=== PATIENT | female | born 1970 | race Caucasian/White ===

== ENCOUNTER 2018-08-17 09:36 | Day surgery (SDC) | payer OTHER ==
[~2018-08-17 09:36] MED LIST: BUPIVACAINE 0.5% 30 ML SDV ONE; HEPARIN 1000 UNIT/1 ML MDV ONE; ceFAZolin 1 GM/5 ML SYR ONE; cefOXitin SODIUM 2 GM in NS 100 ML IV ONE
[2018-08-17] MEDS ORDERED: LR 1,000 ML IV ONE (09:51)
[2018-08-17] MEDS ORDERED: MIDAZOLAM 2 MG/2 ML VIAL IVP ONE (10:26)
--- NOTE | 2018-08-17 10:26 | PDANEPAE ---
ANE History of Present Illness cholelithiasis ANE Past Medical History - Cardiovascular History Hx Hypertension: No Hx Arrhythmias: No Hx Chest Pain: No Hx Coronary Artery / Peripheral Vascular Disease: No Hx CHF / Valvular Disease: No Hx Palpitations: No - Pulmonary History Hx COPD: No Hx Asthma/Reactive Airway Disease: Yes Hx Recent Upper Respiratory Infection: No Hx Oxygen in Use at Home: No Hx Sleep Apnea: No Sleep Apnea Screening Result - Last Documented: Negative Pulmonary History Comment: uses symbicort - Neurologic History Hx Cerebrovascular Accident: No Hx Seizures: No Hx Dementia: No - Endocrine History Hx Diabetes: No Hypothyroid: Yes Obesity: moderate Endocrine History Comment: hypothyroidism - Renal History Hx Renal Disorders: No - Liver History Hx Hepatic Disorders: No - Neurological & Psychiatric Hx Hx Neurological and Psychiatric Disorders: Yes Neurological / Psychiatric History Comment: anxiety - Cancer History Hx Cancer: No - Congenital Disorder History Hx Congenital Disorders: No - GI History GERD: moderate Hx Gastrointestinal Disorders: Yes Gastrointestinal History Comment: constipation. reflux - Other Health History Other Health History: wears glasses/ contacts - Chronic Pain History Chronic Pain: No - Surgical History Prior Surgeries: EGD ANE Review of Systems Review of systems is: negative Review of Systems: - Exercise capacity Exercise capacity: >=4 METS METS (RN): 4 METS ANE Patient History - Allergies Allergies/Adverse Reactions: No Known Allergies Allergy (Verified 08/14/18 11:53) - Home Medications Home medications: home medication list seen and reviewed Home Medications: Herbals/Supplements -Info Only 08/14/18 [Last Taken 08/14/18] Levothyroxine 08/14/18 [Last Taken 08/17/18 07:00] PARoxetine CR 08/14/18 [Last Taken 08/16/18] Pantoprazole Sodium 08/14/18 [Last Taken 08/17/18] Symbicort 80-4.5 Mcg Inhaler 08/14/18 [Last Taken 08/17/18] Trulance 08/14/18 [Last Taken 08/16/18] - NPO status NPO Status: no food or drink >8 hours NPO Since - Liquids (Date): 08/17/18 NPO Since - Liquids (Time): 08:00 NPO Since - Solids (Date): 08/16/18 NPO Since - Solids (Time): 21:30 - Anes Hx Anes Hx: no prior problems - Smoking Hx Smoking Status: Never smoked - Family Anes Hx Family Hx Anesthesia Complications: none ANE Labs/Vital Signs - Labs Result Diagrams: 08/17/18 10:40 08/17/18 10:40 - Vital Signs Vital Signs: reviewed preoperatively; see RN documention for details Height: 160.02 cm Weight: 83.915 kg ANE Physical Exam - Airway Mallampati Score: Class 3 Mouth exam: small mouth opening - Pulmonary Pulmonary: no respiratory distress - Cardiovascular Cardiovascular: regular rate and rhythym - ASA Status ASA Status: II ANE Anesthesia Plan Anesthesia Plan: general endotracheal anesthesia
[2018-08-17 10:54] LABS: PLATELET COUNT 369 10^3/uL (150-400)
--- NOTE | 2018-08-17 11:02 | PDHPUP ---
History & Physical Update H&P update statement: This history and physical update is based on an assessment of the patient which was completed after admission or registration (within 24 hours), but prior to the surgery/procedure. H&P update: H&P reviewed & patient examined, no change in patient's condition since H&P completed
[2018-08-17] MEDS ORDERED: PROPOFOL 200 MG/20 ML VIAL ONE (11:17)
[2018-08-17] MEDS ORDERED: fentaNYL 100 MCG/2 ML INJ ONE ×2 (11:17→12:51)
[2018-08-17] MEDS ORDERED: ONDANSETRON 4 MG/2 ML VIAL ONE ×2 (11:45→13:18)
[2018-08-17] MEDS ORDERED: ROCURONIUM 50 MG/5 ML VIAL ONE (11:45)
[2018-08-17] MEDS ORDERED: LIDOCAINE 2% 5 ML SDV ONE (11:45)
[2018-08-17] MEDS ORDERED: DEXAMETHASONE 4 MG/ML VIAL ONE (11:45)
[2018-08-17] MEDS ORDERED: SUGAMMADEX SODIUM 200 MG/2 ML VIAL IVP ONE (12:03)
[2018-08-17] MEDS ORDERED: PROMETHAZINE HCL 25 MG/ML INJ IVP PRN (12:05)
[2018-08-17] MEDS ORDERED: LR 500 ML IV PRN (12:05)
[2018-08-17] MEDS ORDERED: ALBUTEROL 3 ML DEYVIAL IH PRN (12:05)
[2018-08-17] MEDS ORDERED: ACETAMINOPHEN 500 MG TAB PO PRN (12:05)
[2018-08-17] MEDS ORDERED: NALOXONE HCL 0.4 MG/ML INJ IVP PRN (12:05)
[2018-08-17] MEDS ORDERED: oxyCODONE IR 5 MG TAB PO PRN (12:05)
[2018-08-17] MEDS ORDERED: MEPERIDINE 25 MG/0.5 ML AMP IVP PRN (12:05)
[2018-08-17] MEDS ORDERED: METOCLOPRAMIDE 10 MG/2 ML VIAL IVP PRN (12:05)
[2018-08-17] MEDS ORDERED: fentaNYL 100 MCG/2 ML INJ IVP PRN (12:05)
[2018-08-17] MEDS ORDERED: HYDROmorphONE/DILAUDID 1 MG/ML INJ IVP PRN (12:05)
[2018-08-17] MEDS ORDERED: DEXAMETHASONE 4 MG/ML VIAL IVP PRN (12:05)
[2018-08-17] MEDS ORDERED: LABETALOL HCL 5 MG/ML 20 ML MDV IVP PRN (12:05)
[2018-08-17] MEDS ORDERED: ONDANSETRON 4 MG/2 ML VIAL IVP PRN (12:05)
[2018-08-17] MEDS ORDERED: KETOROLAC 30 MG/1 ML SDV ONE (12:07)
--- NOTE | 2018-08-17 12:23 | POSTOPPROG ---
Post Op Note Date of Operation: 08/17/18 Surgeon: Miguel Newell Substation Designer: Chelsey Anesthesiologist: Marlyn Anesthesia: GET(General Endotracheal) Pre-op Diagnosis: Biliary dyskinesia Post-op Diagnosis: same Indication: RUQ pain Procedure: lap gm Findings: Normal appearing gallbladder Inf/Abcess present in the surg proc area at time of surgery?: No Depth: Organ Space EBL: Minimal Specimen(s): Gallbladder
[2018-08-17] MEDS ORDERED: oxyCODONE IR 5 MG TAB ONE (13:00)
--- NOTE | 2018-08-17 13:48 | POSTANESTH ---
Post Anesthetic Evaluation Cardiovascular Status: Normal, Stable Respiratory Status: Normal, Stable Level of Consciousness/Mental Status: Can Participate in Eval Pain Control: Adequate, Prn Tx Ordered Nausea/Vomiting Control: Adequate, Prn Tx Ordered Complications Possibly Related to Anesthesia: None Noted
[2018-08-17 14:20] VITALS: BP 120/78
--- NOTE | 2018-08-21 22:25 | GOP ---
[f rep st] OPERATIVE REPORT DATE OF OPERATION: 08/17/2018 SURGEON: Miguel Newell MD NUCLEAR WASTE MANAGEMENT ENGINEER: Sara Barbosa, nurse-practitioner. PREOPERATIVE DIAGNOSIS: Biliary dyskinesia. POSTOPERATIVE DIAGNOSIS: Biliary dyskinesia. PROCEDURE PERFORMED: Laparoscopic cholecystectomy. FINDINGS: Patient was found to have a distended gallbladder with no obvious stones. Ducts were smal l. DESCRIPTION OF PROCEDURE: Patient was taken to the operating room where she received a satisfactory general endotracheal anesthesia by Dr. Cline, placed in supine position, prepped and draped in the usual sterile fashion. A periumbilical incision was made. A Veress needle was inserted. Pneumoper itoneum was established. Trocar was introduced. Laparoscope introduced. Good visualization was obt ained. Two other trocars were placed in the upper abdomen under direct vision. The gallbladder was elevated up. It was markedly distended. The cystic triangle was carefully exposed. The ducts were dissected free as was the cystic artery with care to avoid injury to the common bile duct. A good cl ear view was established and the cystic duct and cystic artery were multiply hemo-clipped and divided with care to avoid injury to the common bile duct. The peritoneum of the gallbladder was incised an d the gallbladder was dissected free from the bed and the hepatic fossa and extracted through the upp er midline port site. Hemostasis was assured. Wounds were irrigated. Trocars removed under direct vision. Hemostasis had been assured. Trocar sites were closed with 0 Vicryl for the fascia, 4-0 Mon ocryl subcuticular stitch for the skin. All layers infiltrated with 0.5% Marcaine. Blood loss was n egligible. Taken to recovery room in good condition. Copy requested to: YESSENIA PRATHER NP /[id number]/MODL
== END 2018-08-17 14:19 | disposition home or self-care (01) ==
LOC: FSGY 09:36
PROVIDERS: ATTEND Surgery
PROC: 0FT44ZZ Resection of Gallbladder, Percutaneous Endoscopic Approach (ICD-10-PCS; principal; 2018-08-17 11:00)
DX: K81.1 Chronic cholecystitis (principal); E03.9 Hypothyroidism, unspecified; K21.9 Gastro-esophageal reflux disease without esophagitis; F41.9 Anxiety disorder, unspecified
CPT/HCPCS: J0694; J1100; J1885; J2250; J2405; J2704; J3010